=== PATIENT | female | born 1970 | race American Indian/Alaskan Native ===

== ENCOUNTER 2020-12-29 16:16 | Emergency (ER) | payer MEDICAID ==
[2020-12-29] MEDS ORDERED: IBUPROFEN 800 MG TAB PO ONE (17:30)
--- NOTE | 2020-12-29 18:29 | Emergency Department Report ---
ED Back Pain/Injury HPI - General Chief Complaint: Back Pain/Injury Stated Complaint: BACK PAIN Time Seen by Provider: 12/29/20 17:16 Source: patient, EMS Limitations: No Limitations - History of Present Illness Initial Comments: Patient 50-year-old -[place] female with history of diabetes type 2, seizures, hydrocephalus. Patient presents for bilateral low back pain x2 days. Patient denies fevers, chills, no numbness, tingling, no paralysis. Patient denies decrease in bowel or bladder function. Patient denies trauma. Is been no recent fall or injury. Pain is described as 4/10 constant aching bilateral lower back. Pain is exacerbated by movement and ambulation. Pain is relieved by nothing tried. MD Complaint: back pain - Related Data Allergies Allergy/AdvReac Type Severity Reaction Status Date / Time No Known Allergies Allergy Unverified 12/29/20 16:20 ED Review of Systems ROS: Stated complaint: BACK PAIN Other details as noted in HPI Constitutional: denies: chills, fever Eyes: denies: eye pain, eye discharge, vision change ENT: denies: ear pain, throat pain Respiratory: denies: cough, shortness of breath, wheezing Cardiovascular: denies: chest pain, palpitations Endocrine: no symptoms reported Gastrointestinal: denies: abdominal pain, nausea, vomiting, diarrhea Genitourinary: denies: urgency, dysuria, discharge Musculoskeletal: back pain Skin: denies: rash, lesions ED Past Medical Hx - Past Medical History Hx Seizures: Yes Additional medical history: HYDROCEPHALY/ PRE DIABETIC/ ME - Surgical History Past Surgical History?: No - Social History Smoking Status: Never Smoker Substance Use Type: None ED Physical Exam - General Limitations: No Limitations ED Course Vital Signs 12/29/20 12/29/20 16:24 17:51 Temperature 98.1 F Pulse Rate 103 H Respiratory 18 20 Rate Blood Pressure 102/74 O2 Sat by Pulse 100 Oximetry Critical care attestation.: If time is entered above; I have spent that time in minutes in the direct care of this critically ill patient, excluding procedure time. ED Disposition Condition: Stable
[2020-12-29] MEDS ORDERED: SODIUM CHLORIDE 0.9% 1000 ML 1,000 ML IV ONE (18:35)
--- NOTE | 2020-12-29 18:46 | Emergency Department Report ---
ED General Adult HPI - General Chief complaint: Back Pain/Injury Stated complaint: BACK PAIN Time Seen by Provider: 12/29/20 17:16 Source: patient, EMS Mode of arrival: Wheelchair Limitations: No Limitations - History of Present Illness Initial comments: Patient 50-year-old -[place] female with history of HIV, DM II, SC, Seizures, Hydrocephalus, ETOH abuse last etoh 1 month ago who presents for bilateral low back pain x2 days with generalized malaise and weakness. Patient denies fevers, chills, no cough, no cp, no numbness, tingling, no paralysis. She denies fall , trauma, or injury. Patient denies decrease in bowel or bladder function. Pain is described as 5/10 constant aching bilateral lower back. There is no radiation, Pain is exacerbated by movement and ambulation. Pain is relieved by nothing tried. Severity scale (0 -10): 10 - Related Data Allergies Allergy/AdvReac Type Severity Reaction Status Date / Time No Known Allergies Allergy Unverified 12/29/20 16:20 ED Review of Systems ROS: Stated complaint: BACK PAIN Other details as noted in HPI Constitutional: malaise. denies: chills, fever Eyes: denies: eye pain, eye discharge, vision change ENT: denies: ear pain, throat pain Respiratory: denies: cough, shortness of breath, wheezing Cardiovascular: denies: chest pain, palpitations Endocrine: no symptoms reported Gastrointestinal: denies: abdominal pain, nausea, vomiting, diarrhea, constipation Genitourinary: denies: urgency, dysuria, frequency, hematuria, discharge Musculoskeletal: back pain Skin: denies: rash, lesions Neurological: weakness. denies: headache, numbness, paresthesias, confusion, vertigo Psychiatric: denies: anxiety, depression Hematological/Lymphatic: denies: easy bleeding, easy bruising ED Past Medical Hx - Past Medical History Hx Seizures: Yes Additional medical history: HYDROCEPHALY/ PRE DIABETIC/ [place] - Surgical History Past Surgical History?: No - Social History Smoking Status: Never Smoker Substance Use Type: None ED Physical Exam - General Limitations: No Limitations General appearance: alert, other (thin, under nourished, flat effect , ) - Head Head exam: Present: atraumatic, normocephalic - Eye Eye exam: Present: normal appearance, PERRL, EOMI Pupils: Present: normal accommodation - ENT ENT exam: Present: normal exam - Neck Neck exam: Present: normal inspection, full ROM. Absent: tenderness - Respiratory Respiratory exam: Present: normal lung sounds bilaterally. Absent: respiratory distress, wheezes, stridor, chest wall tenderness - Cardiovascular Cardiovascular Exam: Present: regular rate, normal rhythm, normal heart sounds. Absent: systolic murmur, diastolic murmur, rubs, gallop - GI/Abdominal GI/Abdominal exam: Present: soft, normal bowel sounds. Absent: distended, tenderness, bruit, hernia - Rectal Rectal exam: Present: deferred - Extremities Exam Extremities exam: Present: normal inspection, full ROM, normal capillary refill. Absent: tenderness - Back Exam Back exam: Present: tenderness, paraspinal tenderness. Absent: muscle spasm - Expanded Back Exam Expanded Back exam: Absent: saddle anesthesia Back exam: Negative Straight Leg Raising: Left, Right - Neurological Exam Neurological exam: Present: alert, CN II-XII intact. Absent: oriented X3, motor sensory deficit - Expanded Neurological Exam Expanded Patient oriented to: Present: person, place, time Speech: Present: fluid speech Motor strength exam: RUE: 5, LUE: 5, RLE: 5, LLE: 5 DTR: knee (R): 2+, knee (L): 2+ Best Eye Response (Ricardo): (4) open spontaneously Best Motor Response (Dwight): (6) obeys commands Best Verbal Response (Dwight): (4) confused conversation Ricardo Total: 14 - Psychiatric Psychiatric exam: Present: flat affect - Skin Skin exam: Present: warm, dry, intact, normal color. Absent: rash ED Course Vital Signs 12/29/20 12/29/20 16:24 17:51 Temperature 98.1 F Pulse Rate 103 H Respiratory 18 20 Rate Blood Pressure 102/74 O2 Sat by Pulse 100 Oximetry ED Medical Decision Making - Lab Data Result diagrams: 12/29/20 18:39 12/29/20 18:39 - Radiology Data Radiology results: report reviewed, image reviewed FINDINGS: SUPPORT DEVICES: None. HEART / MEDIASTINUM: No significant abnormality. LUNGS / PLEURA: No significant pulmonary or pleural abnormality. No pneumothorax. ADDITIONAL FINDINGS: No significant additional findings. IMPRESSION: 1. No acute findings. Signer Name: Darnell Terrell MD Signed: 12/29/2020 7:27 PM Workstation Name: [id number] Transcribed By: TL Dictated By: Darnell Terrell MD Electronically Authenticated By: Darnell Terrell MD Signed Date/Time: 12/29/201926 - Medical Decision Making Chest x-ray normal no infiltrates no opacities, labs noted patient currently tolerating p.o. intake without problems. There is no fevers no chills, patient states he feels better after hydration. Patient patient will be DC'd home in stable condition at this time. Patient currently alert oriented x3, ambulatory with steady gait patient to home with family member. Critical care attestation.: If time is entered above; I have spent that time in minutes in the direct care of this critically ill patient, excluding procedure time. ED Disposition Clinical Impression: Dehydration, mild Disposition: DC-01 TO HOME OR SELFCARE Is pt being admited?: No Does the pt Need Aspirin: No Condition: Stable Instructions: Rehydration, Adult, Dehydration, Adult, [id number] Additional Instructions: continue to hydrate as directed, follow up with your primary care doctor in 2-3 days , return to emergency if symptoms, worsen., Referrals: KATHRYN PARDO MD [Staff Physician] - 3-5 Days [facility] [Provider Group] - 3-5 Days
[2020-12-29 19:02] LABS: Basophils # (Auto) 0.1 K/mm3 (0.0-0.1); Basophils % (Auto) 0.7 % (0.0-1.8); Eosinophils # (Auto) 0.7 K/mm3 (0.0-0.4); Eosinophils % (Auto) 8.1 % (0.0-4.3); Hematocrit 29.7 % (30.3-42.9); Hemoglobin 9.8 gm/dl (10.1-14.3); Lymphocytes % (Auto) 11.5 % (13.4-35.0); Mean Corpuscular HGB Conc 33 % (30-34); Mean Corpuscular Volume 78 fl (79-97); Monocytes # (Auto) 0.7 K/mm3 (0.0-0.8); Monocytes % (Auto) 8.1 % (0.0-7.3); Platelet Count 291 K/mm3 (140-440); Red Blood Count 3.82 M/mm3 (3.65-5.03); Red Cell Distribution Width 14.8 % (13.2-15.2)
[2020-12-29 19:12] LABS: Alanine Aminotransferase 18 units/L (7-56); Albumin 3.5 g/dL (3.9-5); Blood Urea Nitrogen 18 mg/dL (7-17); Calcium 9.6 mg/dL (8.4-10.2); Hemolysis Index 2
[2020-12-29 19:22] LABS: BUN/Creatinine Ratio 30
--- NOTE | 2020-12-29 19:32 | XRay Report ---
CHEST 2 VIEWS INDICATION / CLINICAL INFORMATION: weakness. COMPARISON: None available. FINDINGS: SUPPORT DEVICES: None. HEART / MEDIASTINUM: No significant abnormality. LUNGS / PLEURA: No significant pulmonary or pleural abnormality. No pneumothorax. ADDITIONAL FINDINGS: No significant additional findings. IMPRESSION: 1. No acute findings. Signer Name: Darnell Terrell MD Signed: 12/29/2020 7:27 PM Workstation Name: [id number]
[2020-12-29 20:16] VITALS: BP 132/90
== END 2020-12-29 20:26 | disposition home or self-care (01) ==
LOC: ED 16:16
DX: E86.0 Dehydration (principal); R56.9 Unspecified convulsions
CPT/HCPCS: 36415; 71046; 80053; 85025; 96360; 99284; J7030